=== PATIENT | female | born 1980 | race Caucasian/White ===

== ENCOUNTER 2018-06-20 14:24 | Day surgery (SDC) | payer BC ==
[~2018-06-20 14:24] MED LIST: Lactated Ringers 1,000 ML IV SCH; Sodium Chloride 0.9% 10 ML Syringe FLUSH PRN
--- NOTE | 2018-06-20 16:52 | PCM.PN ---
- General Info Date of Service: 06/20/18 - Review of Systems Systems Review Comment:: 37-year-old female with a history of colon polyps here for surveillance colonoscopy. Her last colon exam was 3 years ago. She denies any recent colon symptoms. She also states that her grandfather had colorectal cancer. She is medically stable to proceed today. I discussed the proposed colonoscopy with her. She agrees to proceed accepting risks. On exam today her heart is regular and her lungs are clear. Her recent history and physical is reviewed and no significant changes are noted. - Patient Data Vitals - Most Recent: Last Vital Signs Temp 98.2 F 06/20/18 15:05 Pulse 85 06/20/18 15:05 Resp 14 06/20/18 15:05 BP 122/81 06/20/18 15:05 Pulse Ox 97 06/20/18 15:05 Weight - Most Recent: 113.398 kg Med Orders - Current: Current Medications Lactated Ringer's (Ringers, Lactated) 1,000 mls @ 50 mls/hr IV ASDIRECTED RANDA Last Admin: 06/20/18 15:16 Dose: 50 mls/hr Sodium Chloride (Saline Flush) 10 ml FLUSH Q8HR PRN PRN Reason: keep vein open - Problem List Review Problem List Initiated/Reviewed/Updated: Yes - My Orders Last 24 Hours: My Active Orders 06/20/18 13:30 Patient to Empty Bladder [RC] ASDIRECTED Vital Signs [RC] PER UNIT ROUTINE Lactated Ringers [Ringers, Lactated] 1,000 ml IV ASDIRECTED Sodium Chloride 0.9% [Saline Flush] 10 ml FLUSH Q8HR PRN Peripheral IV Insertion Adult [OM.PC] Routine 06/20/18 14:45 Verify Patient Consent Obtain [RC] ASDIRECTED 06/20/18 Breakfast Nothing Per Oral Diet [DIET] - Assessment Assessment:: History of colon polyps - Plan Plan:: Colonoscopy
[2018-06-20] MEDS ORDERED: Propofol 200 MG/20 ML SDV IV ONE (17:00)
[2018-06-20] MEDS ORDERED: Midazolam 1 MG/ML 2 ML SDV IV ONE (17:00)
[2018-06-20] MEDS ORDERED: Propofol 200 MG/20 ML SDV ONE ×4 (17:01→17:26)
[2018-06-20] MEDS ORDERED: Midazolam 1 MG/ML 2 ML SDV ONE ×2 (17:01→17:02)
--- NOTE | 2018-06-20 17:42 | PCM.OPNOTE ---
- General Post-Op/Procedure Note Date of Surgery/Procedure: 06/20/18 Operative Procedure(s): Colonoscopy Findings: Chronic Proctitis and moderate sized hemorrhoids Pre Op Diagnosis: History of Colon Polyp Post-Op Diagnosis: Proctitis. Hemorrhoids Anesthesia Technique: MAC Primary Surgeon: Romain Gayle Pathology: none Output, Urine Amount: 0 EBL in mLs: 0 Complications: None Condition: Good
[2018-06-20 18:53] VITALS: BP 136/65
--- NOTE | 2018-06-20 19:36 | OR ---
DATE OF SURGERY: 06/20/2018 SURGEON: Romain Gayle MD REFERRING PROVIDER: Nivia Yadav MD PREOPERATIVE DIAGNOSIS: History of colon polyps. POSTOPERATIVE DIAGNOSIS: Proctitis and hemorrhoids. OPERATION PERFORMED: Colonoscopy. INDICATIONS FOR SURGERY: This 37-year-old female has a history of colon polyps and comes today for surveillance colonoscopy. She also has a known history of pelvic radiation and has some chronic proctitis. FINDINGS: No polyps were seen in today's examination. The patient's colon appears normal with the exception of some mild inflammation in the rectum along with some moderate sized internal and external hemorrhoids. DESCRIPTION OF PROCEDURE: The patient was taken to the operating room. She was given intravenous sedation, and with her in the left lateral decubitus position, digital rectal exam was performed showing no rectal masses. The Olympus colonoscope was inserted into the rectum. Retroflexed examination of the rectal canal was performed. The scope was then carefully advanced under direct visualization through the entire length of the colon until the cecum was reached. Cecal acquisition was confirmed by noting normal internal cecal anatomy including the appendiceal orifice and ileocecal valve. The light was also noted to transilluminate the abdominal wall in the right lower quadrant. After examining the cecum, the scope was slowly withdrawn sequentially re- examining the colonic segments until the entire colon and rectum have been fully examined. The scope was removed and the patient was taken from the operating room in satisfactory condition. ESTIMATED BLOOD LOSS: Zero. COMPLICATIONS: None. PROGNOSIS: Good. /[id number]/MODL
== END 2018-06-20 18:45 | disposition home or self-care (01) ==
LOC: KA.SDS 14:24
PROVIDERS: ATTEND Surgery
DX: Z12.11 Encounter for screening for malignant neoplasm of colon (principal); K64.4 Residual hemorrhoidal skin tags; K64.8 Other hemorrhoids; K62.7 Radiation proctitis; Z86.010 Personal history of colon polyps; Z87.891 Personal history of nicotine dependence; Z91.048 Other nonmedicinal substance allergy status; Z79.899 Other long term (current) drug therapy; Z88.5 Allergy status to narcotic agent; Z88.1 Allergy status to other antibiotic agents; Z88.0 Allergy status to penicillin
CPT/HCPCS: J2250; J2704; J7120

== ENCOUNTER 2023-11-27 16:01 | Emergency (ER) | payer BC ==
[2023-11-27 16:45] LABS: BASOPHILS ABSOLUTE AUTO 0.07 10^3/uL (0.00-0.10); BASOPHILS PERCENT AUTO 0.6 % (0.0-1.0); EOSINOPHILS ABSOLUTE AUTO 0.25 10^3/uL (0.10-0.30); EOSINOPHILS PERCENT AUTO 2.3 % (1.0-3.0); HEMATOCRIT 31.1 % (37.0-47.0); HEMOGLOBIN 10.1 g/dL (12.0-16.0); IMMATURE GRAN ABSOLUTE AUTO 0.02 10^3/uL (0.00-0.50); IMMATURE GRAN PERCENT AUTO 0.2 % (0.0-5.0); LYMPHOCYTES ABSOLUTE AUTO 1.16 10^3/uL (1.00-4.00); LYMPHOCYTES PERCENT AUTO 10.7 % (20.0-40.0); MEAN CORPUSCULAR HEMOGLOBIN 31.1 pg (27.0-31.0); MEAN CORPUSCULAR HGB CONC 32.5 g/dL (32.0-36.0); MEAN CORPUSCULAR VOLUME 95.7 fL (82.0-92.0); MEAN PLATELET VOLUME 9.6 fL (7.4-10.4); MONOCYTES ABSOLUTE AUTO 0.82 10^3/uL (0.10-0.80); MONOCYTES PERCENT AUTO 7.6 % (2.0-8.0); NEUTROPHILS ABSOLUTE AUTO 8.51 10^3/uL (2.50-7.00); NEUTROPHILS PERCENT AUTO 78.6 % (50.0-70.0); PLATELET COUNT,PLT 354 10^3/uL (150-400); RED BLOOD CELL COUNT 3.25 10^6/uL (3.80-5.50); RED CELL DISTRIBUTION WIDTH 12.1 % (11.5-14.5); WHITE BLOOD CELL COUNT,WBC 10.83 10^3/uL (5.00-10.00)
[2023-11-27 16:47] LABS: APPEARANCE,URINE SLIGHTLY CLOUDY (CLEAR); BILIRUBIN,URINE NEGATIVE (NEGATIVE); COLOR,URINE YELLOW (YELLOW); GLUCOSE,URINE NEGATIVE (NEGATIVE); KETONES,URINE NEGATIVE (NEGATIVE); LEUKOCYTE ESTERASE,URINE MODERATE (NEGATIVE); NITRITE,URINE NEGATIVE (NEGATIVE); OCCULT BLOOD,URINE SMALL (NEGATIVE); PH,URINE 5.5 (5.0-9.0); PROTEIN,URINE NEGATIVE (NEGATIVE); UROBILINOGEN,URINE 0.2 E.U./dL (0.2-1.0)
[2023-11-27] MEDS: Ketorolac 30 MG/ML SDV IVPUSH ONE (16:50)
[2023-11-27 17:01] LABS: RBC,URINE 0-5 /HPF (0-5)
[2023-11-27 17:02] LABS: BACTERIA,URINE FEW /HPF (NONE TO FEW); EPITHELIAL CELLS,URINE RARE /LPF
[2023-11-27] MEDS: Sodium Chloride 0.9% 50 ML IV SCH (17:24)
[2023-11-27] MEDS: Iopamidol 755 Mg/ML 100 ML Bottle IV ONE (17:24)
[2023-11-27 17:26] LABS: ALBUMIN 2.79 g/dL (3.40-5.00); ANION GAP 16.6 mmol/L (5-15); BILIRUBIN TOTAL 0.2 mg/dL (0.2-1.0); CALCIUM 8.6 mg/dL (8.7-10.3); CARBON DIOXIDE,CO2 22.1 mmol/L (21.0-32.0); EST CRCL DRUG DOSING (CG) 14.87 mL/min; PROTEIN TOTAL,TP 7.3 g/dL (6.4-8.2)
[2023-11-27 17:27] LABS: CREATININE 4.17 mg/dL (0.51-1.17); POTASSIUM,K 5.7 mmol/L (3.5-5.1)
[2023-11-27] MEDS: Sodium Chloride 0.9% 1,000 ML IV ONE (17:45)
[2023-11-27] MEDS: Ondansetron 4 MG/2 ML SDV IVPUSH ONE (18:05)
[2023-11-27 19:43] VITALS: BP 132/65; PULSE 82
== END 2023-11-27 19:10 ==
LOC: KA.ED 16:01
DX: N13.30 Unspecified hydronephrosis (principal); N32.0 Bladder-neck obstruction; E78.00 Pure hypercholesterolemia, unspecified; J45.909 Unspecified asthma, uncomplicated; Z86.16 Personal history of COVID-19; Z90.49 Acquired absence of other specified parts of digestive tract; Z90.710 Acquired absence of both cervix and uterus; Z79.899 Other long term (current) drug therapy; Z88.0 Allergy status to penicillin; Z88.5 Allergy status to narcotic agent; Z91.048 Other nonmedicinal substance allergy status; Z88.8 Allergy status to other drugs, medicaments and biological substances
CPT/HCPCS: 36415; 74177; 80053; 81001; 83605; 85025; 86140; 87086; 96361; 96374; 96375; 99284; 99285-25; J1885; J2405; J3490; J7030; Q9967

== ENCOUNTER 2024-03-06 09:26 | Day surgery (SDC) | payer BC ==
[2024-03-06] MEDS ORDERED: Sodium Chloride 0.9% 10 ML Syringe FLUSH PRN (09:30)
[2024-03-06] MEDS: Lactated Ringers 1,000 ML IV SCH (09:34)
[2024-03-06] MEDS ORDERED: Midazolam 1 MG/ML 2 ML SDV ONE (10:08)
[2024-03-06] MEDS ORDERED: Propofol 200 MG/20 ML SDV ONE (10:08)
[2024-03-06 13:24] VITALS: BP 136/84; PULSE 65
== END 2024-03-06 12:13 | disposition home or self-care (01) ==
LOC: KA.SDS 09:26
PROVIDERS: ATTEND Surgery
DX: Z12.11 Encounter for screening for malignant neoplasm of colon (principal); D12.6 Benign neoplasm of colon, unspecified; F41.9 Anxiety disorder, unspecified; Z86.0100 Personal history of colon polyps, unspecified
CPT/HCPCS: 00811; J2250; J2704; J3490; J7120